=== PATIENT | female | born 1970 | race Caucasian/White ===

== ENCOUNTER 2016-11-18 15:37 | Observation (INO) | payer OTHER ==
[2016-11-18] MEDS ORDERED: SODIUM CHLORIDE 1,000 ML IV STA (16:43)
[2016-11-18] MEDS ORDERED: ACETAMINOPHEN 1000 MG/100 ML VIAL (NON FORMULARY) IVPB ONE (16:43)
--- NOTE | 2016-11-18 16:50 | PDOC ---
History of Present Illness - General History Source: Patient Exam Limitations: No Limitations - History of Present Illness Initial Comments: 11/18/16 17:10 The patient is a 46 year old female with a significant past medical history of diverticulitis, sent by PCP to the Emergency Department with lower abdominal pain, constipation, and vomiting. The patient describes the pain as at her lower abdomen, worse at the right side. She admits to three episodes of vomiting in the past two days. Her last bowel movement was days ago. She also admits to dysuria. She states that her PCP sent her here for colon inflammation , which she has had once previously. The patient denies fever, cough, and chills. Patient denies chest pain, palpitations, and diaphoresis. Patient denies neck pain, or back pain. Patient denies hematuria, or urinary frequency. Allergies: Morphine, Percocet PCP: Dr. Madelyn Frost <Emilee Wing - Last Filed: 11/18/16 18:06> - General History Source: Patient Exam Limitations: No Limitations <Salbador Denton - Last Filed: 11/26/16 09:22> - General Chief Complaint: Pain, Acute Stated Complaint: ABD PAIN (PCP SENT) Time Seen by Provider: 11/18/16 16:25 Past History <Emilee Wing - Last Filed: 11/18/16 18:06> - Past Medical History Anemia: No Asthma: No Cancer: No Cardiac Disorders: No CVA: No COPD: No CHF: No Dementia: No Diabetes: No GI Disorders: Yes (POLYPS) Disorders: No HTN: No Hypercholesterolemia: No Liver Disease: No Seizures: No Thyroid Disease: No - Surgical History Abdominal Surgery: No Appendectomy: Yes Cardiac Surgery: No Cholecystectomy: No Lung Surgery: No Neurologic Surgery: No Orthopedic Surgery: No - Psycho/Social/Smoking Cessation Hx Suicidal Ideation: No Smoking History: Never smoked Have you smoked in the past 12 months: No Hx Alcohol Use: No Drug/Substance Use Hx: No Substance Use Type: None Hx Substance Use Treatment: No <Salbador Denton - Last Filed: 11/26/16 09:22> - Past Medical History Allergies/Adverse Reactions: Allergies Allergy/AdvReac Type Severity Reaction Status Date / Time oxycodone HCl [From Percocet] Allergy Severe Verified 11/18/16 15:48 morphine Allergy Unknown DIZZINESS, Verified 01/17/13 08:05 VOMITING Home Medications: Ambulatory Orders Miscellaneous Medical Supply [Outpatient Order] 1 each ASDIR #1 misc Polyethylene Glycol 3350 [Miralax 119 gm Btl -] 17 gm PO DAILY #0 bottle Sennosides/Docusate Sodium [Pericolace -] 1 tablet PO BID #60 tablet 11/21/16 Review of Systems - Review of Systems Able to Perform ROS?: Yes Comments:: 11/18/16 17:11 CONSTITUTIONAL: No reported: Fever, Chills, Diaphoresis, Generalized Weakness, Malaise, Loss of Appetite HEENT: No reported: Rhinorrhea, Nasal Congestion, Throat Pain, Throat Swelling, Difficulty Swallowing, Mouth Swelling, Ear Pain, Eye Pain, Visual Changes CARDIOVASCULAR: No reported: Chest Pain, Syncope, Palpitations, Irregular Heart Rate, Lightheadedness, Peripheral Edema RESPIRATORY: No reported: Cough, Shortness of Breath, SOB with Exertion, Orthopnea, Wheezing , Stridor, Hemoptysis GASTROINTESTINAL: Reported: + lower abdominal pain, + nausea, + vomiting, + constipation No reported: Abdominal Distension, Diarrhea, Melena, Hematochezia GENITOURINARY: Reported: + dysuria No reported: Frequency, Urgency, Hesitancy, Flank Pain, Genital Pain MUSCULOSKELETAL: No reported: Myalgia, Arthralgia, Joint Swelling, Back pain, Neck Pain SKIN: No reported: Rash, Itching, Pallor HEMATOLOGIC/IMMUNOLOGIC: No reported: Easy Bleeding, Easy Bruising, Lymphadenopathy, Frequent infections ENDOCRINE: No reported: Unexplained Weight Gain, Unexplained Weight Loss, Heat Intolerance , Cold Intolerance NEUROLOGIC: No reported: Headache, Focal Weakness, Paresthesias, Vertigo, Lightheadedness, Unsteady Gait, Seizure, Mental Status Changes, Incontinence PSYCHIATRIC: No reported: Anxiety, Depression <Emilee Wing - Last Filed: 11/18/16 18:06> *Physical Exam - Vital Signs Last Vital Signs Temp Pulse Resp BP Pulse Ox 98.1 F 72 20 110/59 98 11/18/16 15:49 11/18/16 15:49 11/18/16 15:49 11/18/16 15:49 11/18/16 15:49 - Physical Exam Comments: 11/18/16 18:06 GENERAL: The patient is awake, alert, and fully oriented, Nontoxic - in no acute distress. HEAD: Normocephalic, atraumatic. EYES: extraocular movements intact, sclera anicteric, conjunctiva clear. ENT: Normal voice, Moist mucous membranes. NECK: Normal range of motion, No JVD LUNGS: Breath sounds equal, clear to auscultation bilaterally. No wheezes, no rhonchi, no rales. HEART: Regular rate and rhythm, normal S1 and S2 without murmur, rub or gallop. ABDOMEN: Suprapubic tenderness, and LLQ tenderness to palpation. Soft, normoactive bowel sounds. No guarding, no rebound. No masses. No CVA tenderness EXTREMITIES: Normal range of motion, no edema. No clubbing or cyanosis. No cords , erythema, or tenderness. NEUROLOGICAL: No facial asymmetry, Normal speech, normal gait. PSYCH: Normal mood, normal affect. SKIN: Warm, Dry, normal turgor. <Emilee Wing - Last Filed: 11/18/16 18:06> - Vital Signs Last Vital Signs Temp Pulse Resp BP Pulse Ox 98.1 F 72 20 110/59 98 11/18/16 15:49 11/18/16 15:49 11/18/16 15:49 11/18/16 15:49 11/18/16 15:49 <Salbador Denton - Last Filed: 11/26/16 09:22> ED Treatment Course - LABORATORY CBC & Chemistry Diagram: 11/18/16 16:43 11/18/16 16:43 - Medications Given in the ED: ED Medications Discontinued Medications Generic Name Dose Route Start Last Admin Trade Name Lucy PRN Reason Stop Dose Admin Acetaminophen 1,000 mg 11/18/16 16:43 11/18/16 16:53 Ofirmev Injection - IVPB 11/18/16 16:44 1,000 mg ONCE ONE Administration <Emilee Wing - Last Filed: 11/18/16 18:06> - LABORATORY CBC & Chemistry Diagram: 11/21/16 06:00 11/21/16 06:00 - RADIOLOGY Radiology Studies Ordered: Category Date Time Status ABDOMEN & PELVIS CT WITH CONTR [CT] Stat CT Scan 11/18/16 16:43 Ordered <Salbador Denton - Last Filed: 11/26/16 09:22> Medical Decision Making - Medical Decision Making 11/18/16 16:49 A portion of this note was documented by scribe services under my direction. I have reviewed the details of the note, within reason, and agree with the documentation with the following case summary and management plan written by me. Patient treated in the ED. Nursing notes are reviewed and incorporated into the medical decision-making. Vital signs reviewed. Peripheral IV access obtained by the nurse, laboratory studies are drawn and sent, reviewed and interpreted by myself. Vital Signs Temp Pulse Resp BP Pulse Ox 98.1 F 72 20 110/59 98 11/18/16 15:49 11/18/16 15:49 11/18/16 15:49 11/18/16 15:49 11/18/16 15:49 46-year-old with past medical history of prior colitis, not currently on medications, presents with abdominal pain. The patient has started developing in the last several days and started developing some nausea and vomiting and lower abdominal pain prior to her similar colitis episode. Patient does not room her last colonoscopy but had visited her doctor today who was concerned for colitis and sent the patient ED. Patient was complaining about some mild dysuria. Differential includes cystitis versus colitis. We'll obtain labs, urinalysis CT scan. We'll reassess and follow-up 11/18/16 18:55 CBC, BMP 11/18/16 16:43 11/18/16 16:43 CMP Sodium 140 mmol/L (136-145) 11/18/16 16:43 Potassium 4.1 mmol/L (3.5-5.1) 11/18/16 16:43 Chloride 103 mmol/L (98-107) 11/18/16 16:43 Carbon Dioxide 29 mmol/L (21-32) D 11/18/16 16:43 Anion Gap 8 (8-16) 11/18/16 16:43 BUN 14 mg/dL (7-18) D 11/18/16 16:43 Creatinine 0.7 mg/dL (0.55-1.02) D 11/18/16 16:43 Creat Clearance w eGFR > 60 (>60) 11/18/16 16:43 Random Glucose 91 mg/dL (74-106) D 11/18/16 16:43 Calcium 9.6 mg/dL (8.5-10.1) 11/18/16 16:43 Total Bilirubin 0.3 mg/dL (0.2-1.0) 11/18/16 16:43 AST 17 U/L (15-37) D 11/18/16 16:43 ALT 20 U/L (12-78) D 11/18/16 16:43 Alkaline Phosphatase 95 U/L (45-117) D 11/18/16 16:43 Total Protein 7.0 g/dl (6.4-8.2) 11/18/16 16:43 Albumin 3.9 g/dl (3.4-5.0) 11/18/16 16:43 Lipase 102 U/L (73-393) 11/18/16 16:43 Urine Test Results Urine Color Straw 11/18/16 16:47 Urine Appearance Clear 11/18/16 16:47 Urine pH 6.0 (5.0-8.0) 11/18/16 16:47 Urine Protein Negative (NEGATIVE) 11/18/16 16:47 Urine Glucose (UA) Negative (NEGATIVE) 11/18/16 16:47 Urine Ketones Negative (NEGATIVE) 11/18/16 16:47 Urine Blood 1+ (NEGATIVE) H 11/18/16 16:47 Urine Nitrite Negative (NEGATIVE) 11/18/16 16:47 Urine Bilirubin Negative (NEGATIVE) 11/18/16 16:47 Ur Leukocyte Esterase Negative (NEGATIVE) 11/18/16 16:47 Urine RBC 1 /hpf (0-3) 11/18/16 16:47 Urine WBC 1 /hpf (3-5) 11/18/16 16:47 Ur Epithelial Cells Rare /hpf (FEW) 11/18/16 16:47 Urine Mucus Rare 11/18/16 16:[address] scan of abdomen and pelvis pending. [facility] Cyr for further management and disposition. <Salbador Denton - Last Filed: 11/26/16 09:22> *DC/Admit/Observation/Transfer - Attestations Scribe Attestion: 11/18/16 17:11 Documentation prepared by Emilee Wing, acting as medical director/head team physician for Salbador Denton MD. <Emilee Wing - Last Filed: 11/18/16 18:06> <Park,Salbador - Last Filed: 11/26/16 09:22> Diagnosis at time of Disposition: Diverticulitis, Intractable abdominal pain - Discharge Dispostion Disposition: HOME Condition at time of disposition: Improved - Prescriptions - Referrals
[2016-11-18] MEDS ORDERED: ACETAMINOPHEN INJECTION 100 ML IVPB ONE (16:57)
[2016-11-18 17:02] LABS: BASOPHIL 0.3 % (0-2.0); EOSINOPHIL 3.3 % (0-4.5); MCH 31.3 pg (25.7-33.7); MCHC 33.4 g/dl (32.0-36.0); MEAN CELL VOLUME 93.8 fl (80-96); NEUTROPHILS 66.6 % (42.8-82.8); PLATELET COUNT 267 K/MM3 (134-434); RDW 13.5 % (11.6-15.6); WHITE BLOOD COUNT 9.5 K/mm3 (4.0-10.0)
[2016-11-18 17:28] LABS: ALBUMIN 3.9 g/dl (3.4-5.0); ALK PHOS 95 U/L (45-117); ANION GAP 8 (8-16); BILIRUBIN,TOTAL 0.3 mg/dL (0.2-1.0); CALCIUM 9.6 mg/dL (8.5-10.1); CO2 29 mmol/L (21-32); COCKROFT - GAULT 110.1515; CREATININE 0.7 mg/dL (0.55-1.02); GLUCOSE,RANDOM 91 mg/dL (74-106); SGOT/AST 17 U/L (15-37); SGPT/ALT 20 U/L (12-78)
[2016-11-18 17:46] LABS: URINE APPEARANCE CLEAR; URINE BILIRUBIN NEGATIVE (NEGATIVE); URINE COLOR STRAW; URINE GLUCOSE (UA) NEGATIVE (NEGATIVE); URINE KETONE NEGATIVE (NEGATIVE); URINE LEUK ESTERASE NEGATIVE (NEGATIVE); URINE NITRITE NEGATIVE (NEGATIVE); URINE PROTEIN NEGATIVE (NEGATIVE); URINE UROBILINOGEN NEGATIVE E.U./dl (0.2-1.0)
[2016-11-18 17:52] LABS: URINE BLOOD 1+ (NEGATIVE)
[2016-11-18 18:26] LABS: URINE MUCUS RARE; URINE RBC 1 /hpf (0-3); URINE WBC 1 /hpf (3-5)
[2016-11-18] MEDS ORDERED: METRONIDAZOLE 500 MG PREMIXED 100 ML IVPB ONE ×2 (20:18→20:34)
[2016-11-18] MEDS ORDERED: LEVOFLOXACIN 500 MG IVPB 100 ML IVPB ONE ×2 (20:18→21:52)
[2016-11-18] MEDS ORDERED: KETOROLAC TROMETHAMINE 30 MG/1 ML VIAL IVPUSH ONE (20:20)
[2016-11-18] MEDS ORDERED: KETOROLAC TROMETHAMINE 30 MG/1 ML VIAL ONE (20:34)
[2016-11-18] MEDS ORDERED: ACETAMINOPHEN WITH CODEINE 300MG/30MG TABLET PO ONE (23:17)
[2016-11-18] MEDS ORDERED: ACETAMINOPHEN WITH CODEINE 300MG/30MG TABLET ONE (23:33)
--- NOTE | 2016-11-19 01:13 | PDOC ---
*Physical Exam - Vital Signs Last Vital Signs Temp Pulse Resp BP Pulse Ox 98.3 F 59 L 17 109/59 97 11/18/16 21:01 11/18/16 21:01 11/18/16 21:01 11/18/16 21:01 11/18/16 21:01 ED Treatment Course - LABORATORY CBC & Chemistry Diagram: 11/18/16 16:43 11/18/16 16:43 - ADDITIONAL ORDERS Additional order review: Laboratory Results 11/18/16 11/18/16 11/18/16 16:47 16:47 16:43 Sodium 140 Potassium 4.1 Chloride 103 Carbon Dioxide 29 D Anion Gap 8 BUN 14 D Creatinine 0.7 D Creat Clearance w eGFR > 60 Random Glucose 91 D Calcium 9.6 Total Bilirubin 0.3 AST 17 D ALT 20 D Alkaline Phosphatase 95 D Total Protein 7.0 Albumin 3.9 Lipase 102 Urine Color Straw Urine Appearance Clear Urine pH 6.0 Ur Specific [place] 1.010 Urine Protein Negative Urine Glucose (UA) Negative Urine Ketones Negative Urine Blood 1+ H Urine Nitrite Negative Urine Bilirubin Negative Urine Urobilinogen Negative Ur Leukocyte Esterase Negative Urine RBC 1 Urine WBC 1 Ur Epithelial Cells Rare Urine Mucus Rare Urine HCG, Qual Negative 11/18/16 16:43 RBC 3.86 MCV 93.8 MCHC 33.4 RDW 13.5 MPV 10.0 Neutrophils % 66.6 Lymphocytes % 23.0 Monocytes % 6.8 Eosinophils % 3.3 Basophils % 0.3 - Medications Given in the ED: ED Medications Discontinued Medications Generic Name Dose Route Start Last Admin Trade Name Lucy PRN Reason Stop Dose Admin Acetaminophen 1,000 mg 11/18/16 16:43 11/18/16 16:53 Ofirmev Injection - IVPB 11/18/16 16:44 1,000 mg ONCE ONE Administration Acetaminophen/Codeine Phosphate 1 tab 11/18/16 23:17 11/18/16 23:35 Tylenol # 3 - PO 11/18/16 23:18 1 tab ONCE ONE Administration Sodium Chloride 1,000 mls @ 1,000 mls/hr 11/18/16 16:43 11/18/16 16:53 Normal Saline - IV 11/18/16 17:42 1,000 mls/hr ASDIR STA Administration Metronidazole 100 mls @ 100 mls/hr 11/18/16 20:18 11/18/16 20:47 Flagyl 500mg Premixed Ivpb - IVPB 11/18/16 21:17 100 mls/hr ONCE ONE Administration Levofloxacin 100 mls @ 100 mls/hr 11/18/16 20:18 11/18/16 21:30 Levaquin 500 Mg Premixed Ivpb - IVPB 11/18/16 21:17 100 mls/hr ONCE ONE Administration Ketorolac Tromethamine 30 mg 11/18/16 20:20 11/18/16 20:47 Toradol Injection - IVPUSH 11/18/16 20:21 30 mg ONCE ONE Administration *DC/Admit/Observation/Transfer Diagnosis at time of Disposition: Intractable abdominal pain Diverticulitis of intestine Qualifiers: Diverticulitis site: large intestine Diverticulitis bleeding: without bleeding Diverticulitis complication: unspecified complication status Qualified Code(s): K57.32 - Diverticulitis of large intestine without perforation or abscess without bleeding - Discharge Dispostion Condition at time of disposition: Stable Admit: Yes - Referrals Referrals: Madelyn Frost NP [Primary Care Provider] - - Patient Instructions - Post Discharge Activity
[2016-11-19] MEDS ORDERED: HYDROmorphone HCL CARPU-JECT 1 MG/1 ML DISP.SYRIN IVPUSH ONE (01:14)
[2016-11-19] MEDS ORDERED: DEXTROSE 5%-0.45% SALINE 1,000 ML IV SCH (01:15)
[2016-11-19] MEDS ORDERED: HYDROmorphone HCL CARPU-JECT 1 MG/1 ML DISP.SYRIN ONE (01:41)
[2016-11-19] MEDS ORDERED: ONDANSETRON 4 MG/2 ML VIAL ONE (01:42)
[2016-11-19] MEDS ORDERED: ONDANSETRON 4 MG/2 ML VIAL IVPB PRN (03:14)
[2016-11-19] MEDS ORDERED: KETOROLAC TROMETHAMINE 15 MG/ML VIAL IVPUSH PRN (03:14)
--- NOTE | 2016-11-19 03:30 | HP ---
CHIEF COMPLAINT: " my stomach hurts" PCP: Dr Frost Gi: Dr Duncan HISTORY OF PRESENT ILLNESS: This is a 46 yo F with PMH of diverticulosis, who presents to ED at urging of PCP due to 2 days of severe abd pain, vomiting and constipation. Her pain is new , in Ruq, RLQ and pelvic, sharp, constant and minimally relieved by toradol given in ER. It started suddenly 2 days ago and is associated with nausea (not nauseus anymore) and 3 episodes of NBNB voomiting, last one yesterday. She has been able to tolerate PO. Her last BM was yesterday but very small. Last large BM was on tuesday. She denies melena or hematochezia. She last saw Dr Duncan 2 yrs ago at which time she was diagnosed with diverticulosis on colonoscopy. She had a CT and in 2013 on which sigmoid diverticulosis and mild wall thickening ( not officially read as such) was present. She denies diarrhea, pain during defecation, mucus in stool, f/c, family hx if ibd, chest pain, sob, h/a, loc, palpitations. She reports assiciated R lank pain but denies dysuria. ER course was notable for: (1)labs (2)cxr, ct abd/pelvis with contrast (3)ivf, dilaudid, toradol, levaquin, flagyn, tylenol Recent Travel: denies PAST MEDICAL HISTORY: as above PAST SURGICAL HISTORY: appendectomy, cholecystectomy. Social History: lives at home Smoking:denies Alcohol:denies Drugs: denies Family History: Allergies oxycodone HCl [From Percocet] Allergy (Severe, Verified 11/18/16 15:48) DIZZY VOMITING morphine Allergy (Unknown, Verified 01/17/13 08:05) DIZZINESS, VOMITING HOME MEDICATIONS: Home Medications Medication Instructions Recorded NK [No Known Home Medication] 11/18/16 REVIEW OF SYSTEMS CONSTITUTIONAL: Absent: fever, chills, loss of appetite, weight change HEENT: Absent: rhinorrhea, nasal congestion, throat pain CARDIOVASCULAR: Absent: chest pain, syncope, palpitations, irregular heart rate, lightheadedness , peripheral edema RESPIRATORY: Absent: cough, shortness of breath, dyspnea with exertion, orthopnea GASTROINTESTINAL: Absent: abdominal distension, diarrhea, melena, hematochezia GENITOURINARY: Absent: dysuria, frequency, urgency, hematuria MUSCULOSKELETAL: Absent: myalgia, arthralgia SKIN: Absent: rash, itching, pallor HEMATOLOGIC/IMMUNOLOGIC: Absent: frequent infections ENDOCRINE: Absent: unexplained weight gain, unexplained weight loss, heat intolerance, cold intolerance NEUROLOGIC: Absent: headache, focal weakness or paresthesias PSYCHIATRIC: Absent: anxiety PHYSICAL EXAMINATION GENERAL: Awake, alert, and fully oriented, in mild distress. HEAD: Normal with no signs of trauma. EYES: Pupils equal, round and reactive to light, extraocular movements intact, sclera anicteric, conjunctiva clear. No lid lag. EARS, NOSE, THROAT: Moist mucous membranes. NECK: supple without JVD LUNGS: Breath sounds equal, clear to auscultation bilaterally HEART: Regular rate and rhythm, normal S1 and S2 ABDOMEN: Soft, tender RUQ, RLQ and pelvic region, not distended, normoactive bowel sounds, no guarding, no rebound, no masses. No hepatomegaly or splenomegaly. RECTAL EXAM: adequate rectal sphincter tone, no lesions, hard light brown stool in vault, not painful MUSCULOSKELETAL: +R CVA tenderness. UPPER EXTREMITIES: 2+ pulses, warm, well-perfused. No cyanosis. No clubbing. No peripheral edema. LOWER EXTREMITIES: 2+ pulses, warm, well-perfused. No calf tenderness. No peripheral edema. NEUROLOGICAL: Cranial nerves II-XII grossly intact. Normal speech. PSYCHIATRIC: Cooperative. Good eye contact. Appropriate mood and affect. SKIN: Warm, dry ASSESSMENT/PLAN: This is a 46 yo F with PMH of diverticulosis, who presents to ED at urging of PCP due to 2 days of severe abd pain, vomiting and constipation. Acute uncomplicated diverticulitis vs colitis -Ct abd/pelvis w contrast: sigmoid diverticulitis, distal 3rd sigmoid wall thickening with mild edema. impacted with stool -diverticulosis on colonoscopy 2 yrs ago -no leukocytosis or fever; +severe intractable abd pain -levaquin, flagyl given in ed; cover with IV abx cipro 400 bid and flagyl 500 q8h; may be switched to a 7-10 d course of PO abx shortly -tylenol; toradol worked best for pain control; continue -zofran PRN nausea -NS@100 -full liquids diet -colace for constipation, may need disimpaction -Dr Duncan consult FEN NS@100 lytes stable full liquid diet SCDs, early ambulation, PPI Dispo: obs med tracy Problem List - Problem (1) Diverticulitis Code(s): K57.92 - DVTRCLI OF INTEST, PART UNSP, W/O PERF OR ABSCESS W/O BLEED Qualifiers: Diverticulitis site: large intestine Diverticulitis bleeding: without bleeding Diverticulitis complication: unspecified complication status Qualified Code(s): K57.32 - Diverticulitis of large intestine without perforation or abscess without bleeding (2) Intractable abdominal pain Code(s): R10.9 - UNSPECIFIED ABDOMINAL PAIN Visit type - Emergency Visit Emergency Visit: Yes ED Registration Date: 11/19/16 Care time: The patient presented to the Emergency Department on the above date and was hospitalized for further evaluation of their emergent condition. - New Patient This patient is new to me today: Yes Date on this admission: 11/19/16 - Critical Care Critical Care patient: No
[2016-11-19] MEDS ORDERED: ACETAMINOPHEN 325 MG TABLET (FP) PO PRN (03:32)
--- NOTE | 2016-11-19 03:41 | PN ---
<Amelia Barrera - Last Filed: 11/19/16 03:41> Teaching Attending Note Name of Resident: Jessa Amor <Rosie Branch - Last Filed: 11/19/16 03:52> Teaching Attending Note ATTENDING PHYSICIAN STATEMENT I saw and evaluated the patient. I reviewed the resident's note and discussed the case with the resident. I agree with the resident's findings and plan as documented. SUBJECTIVE: 46 yo F presents to ED after referral from PMD with complaint of lower quadrant abdominal pain for 1 week. On evaluation in ED, patient found to have diverticulosis with signs of colon wall thickening and labs within normal limits , however, intractable pain for which admission was requested. Past medical Hx significant for diverticulosis, appendectomy and cholecystectomy. OBJECTIVE: Last Vital Signs Temp Pulse Resp BP Pulse Ox 98.3 F 59 L 17 109/59 97 11/18/16 21:01 11/18/16 21:01 11/18/16 21:01 11/18/16 21:01 11/18/16 21:01 GENERAL: Age incongruent with appearance. Awake, alert, and fully oriented, in no acute distress HEENT: Atraumatic. PERRLA, EOMI. Moist mucosa. No JVD LUNGS: No distress, speaks full sentences, clear to auscultation bilaterally HEART: Regular rate and rhythm, normal S1 and S2, no murmurs, rubs or gallops, peripheral pulses normal and equal bilaterally. ABDOMEN: Soft, tender in LLQ more than RLQ, normoactive bowel sounds. No guarding, no rebound. No masses. Rectal: Rectal exam positive for feces in rectal vault EXTREMITIES: Normal inspection, Normal range of motion, no edema. No clubbing or Cyanosis. NEUROLOGICAL: Cranial nerves II through XII grossly intact. Normal speech, gait not assessed, no focal sensorimotor deficits SKIN: Warm, Dry, normal turgor, no rashes or lesions noted. CBCD WBC 9.5 K/mm3 (4.0-10.0) 11/18/16 16:43 RBC 3.86 M/mm3 (3.60-5.2) 11/18/16 16:43 Hgb 12.1 GM/dL (10.7-15.3) 11/18/16 16:43 Hct 36.2 % (32.4-45.2) 11/18/16 16:43 MCV 93.8 fl (80-96) 11/18/16 16:43 MCHC 33.4 g/dl (32.0-36.0) 11/18/16 16:43 RDW 13.5 % (11.6-15.6) 11/18/16 16:43 Plt Count 267 K/MM3 (134-434) 11/18/16 16:43 MPV 10.0 fl (7.5-11.1) 11/18/16 16:43 CMP Sodium 140 mmol/L (136-145) 11/18/16 16:43 Potassium 4.1 mmol/L (3.5-5.1) 11/18/16 16:43 Chloride 103 mmol/L (98-107) 11/18/16 16:43 Carbon Dioxide 29 mmol/L (21-32) D 11/18/16 16:43 Anion Gap 8 (8-16) 11/18/16 16:43 BUN 14 mg/dL (7-18) D 11/18/16 16:43 Creatinine 0.7 mg/dL (0.55-1.02) D 11/18/16 16:43 Creat Clearance w eGFR > 60 (>60) 11/18/16 16:43 Calcium 9.6 mg/dL (8.5-10.1) 11/18/16 16:43 Total Bilirubin 0.3 mg/dL (0.2-1.0) 11/18/16 16:43 AST 17 U/L (15-37) D 11/18/16 16:43 ALT 20 U/L (12-78) D 11/18/16 16:43 Alkaline Phosphatase 95 U/L (45-117) D 11/18/16 16:43 Total Protein 7.0 g/dl (6.4-8.2) 11/18/16 16:43 Albumin 3.9 g/dl (3.4-5.0) 11/18/16 16:43 ASSESSMENT AND PLAN: 1.) Intractable abdominal pain secondary to diverticulitis vs colitis -Full liquid diet -IVF overnight -Protonix -Levo and flagyl -Toradol PRN for pain -Zofran PRN for nausea -GI consult Dr. Duncan Case discussed with resident and plans as documented in HPI. Documentation is prepared by Rosie Branch acting as medical program specialist for Amelia Barrera M.D.
[2016-11-19 04:00] VITALS: BMI 27.5
[2016-11-19] MEDS: SODIUM CHLORIDE 1,000 ML IV SCH ×2 (04:19→22:29)
[2016-11-19] MEDS: METRONIDAZOLE 500 MG PREMIXED 100 ML IVPB SCH ×3 (04:19→17:04)
[2016-11-19] MEDS: DOCUSATE SODIUM 100 MG CAPSULE (FP) PO SCH ×3 (06:01→22:29)
[2016-11-19 07:41] LABS: BASOPHIL 0.1 % (0-2.0); EOSINOPHIL 0.6 % (0-4.5); MCH 31.9 pg (25.7-33.7); MCHC 33.8 g/dl (32.0-36.0); MEAN CELL VOLUME 94.2 fl (80-96); MEAN PLT VOLUME 9.8 fl (7.5-11.1); NEUTROPHILS 79.7 % (42.8-82.8); PLATELET COUNT 213 K/MM3 (134-434); WHITE BLOOD COUNT 7.7 K/mm3 (4.0-10.0)
[2016-11-19 08:03] LABS: CALCIUM 8.4 mg/dL (8.5-10.1); COCKROFT - GAULT 141.78; CREATININE 0.6 mg/dL (0.55-1.02)
--- NOTE | 2016-11-19 09:41 | EKG ---
Test Reason : Blood Pressure : / mmHG Vent. Rate : 056 BPM Atrial Rate : 056 BPM P-R Int : 162 ms QRS Dur : 078 ms QT Int : 466 ms P-R-T Axes : 047 078 076 degrees QTc Int : 449 ms SINUS BRADYCARDIA OTHERWISE NORMAL ECG WHEN COMPARED WITH ECG OF 23-MAR-2011 07:40, NO SIGNIFICANT CHANGE WAS FOUND Confirmed by JG FREGOSO MD ([id number]) on 11/19/2016 9:41:13 AM Referred By: Confirmed By:JG FREGOSO MD
[2016-11-19] MEDS ORDERED: LEVOFLOXACIN 500 MG IVPB 100 ML IVPB SCH (10:00)
[2016-11-19] MEDS: PANTOPRAZOLE 40 MG TABLET (FP) PO SCH (10:00)
[2016-11-19] MEDS ORDERED: CIPROFLOXACIN 400 MG/D5W 200 ML IVPB SCH (10:00)
[2016-11-19] MEDS ORDERED: SENNOSIDES/DOCUSATE COMBO (SENNA PLUS) TABLET (UD) PO SCH (11:30)
[2016-11-19] MEDS ORDERED: BISACODYL 10 MG SUPP.RECT RC ONE ×3 (11:30→20:00)
--- NOTE | 2016-11-19 12:25 | PN ---
Teaching Attending Note Name of Resident: Ken Boo ATTENDING PHYSICIAN STATEMENT I saw and evaluated the patient. I reviewed the resident's note and discussed the case with the resident. I agree with the resident's findings and plan as documented. SUBJECTIVE: no fever or chills, has still abd pain in RLQ , and RUQ . and suprapubic area, she denies dysuria or frequency. had n/V last night , now with nausea only with no vomiting. OBJECTIVE: NAD , AAOX3 MMM. CV: RRR, no mRG Lunsg: CTAB ext: no edema Abd : soft, TTP in RLQ, RUQ and suprapubic area. rebound tenderness , no guarding . nl BS . no distention ASSESSMENT AND PLAN: 46 y/o lady with h/o CCY, diverticulosis , and chronic constipation who presented with abs pain , was found to have fecal impaction . 1- Abd pain: probably due to the fecal impaction and sigmoiditis ( infectious vs ischemic ). although her tenderness and pain is in RLQ , CT with contrast did not show indirect signs of appendicitis ( appendix was not completely visualized though) . acute appendicitis is less likely at this point as there is no fever or leukocytosis . and pain might be from all the stool impaction and with stool in R colon too. adhesions might be causing her pain too. No evidence of UTI, or ileus on CT scan - cont levaquin and flagyl. - rectal exam was done and disimpaction was attempted , but was unsuccessful. - will try Dulcolox supp , amiralax TID, lactulose twice today, senna+colace. - Avoid enemas due to risk of perforation especially with wall edema on CT scan - monitor for fever, or leukocytosis. - check lactic acid - check post void bladder scan. due to the bladder distention on CT scan - no evidence of biliary source , no CBD dialtion , nl LFTS and h/o CCY - GI consult pending - DV NGT ordered last night - IVF DVTS px
--- NOTE | 2016-11-19 13:32 | MSN ---
Progress Note (short form) - Note Progress Note: Subjective: Patient seen and examined at bed side this morning. Patient complains of RLQ abdominal pain, right CVA tenderness rated as a 4/10 (an improvement from the night before), and suprapubic pain. Patient denies dysuria , or additional vomiting since last night. Patient is still nausea. Objective: Vital Signs Period Temp Pulse Resp BP Sys/Alas Pulse Ox Last 24 Hr 97.5 F-98.3 F 58-77 17-20 93-110/54-59 97-98 General: Middle aged female, alert and oriented X3. Head: normocephalic, atraumatic Eyes: No scleral icterus or pallor. EOM intact. Neck: Supple. HENT: moist mucus membranes; pharynx without exudates or erythema Abdomen: Soft. Tender to palpation at RLQ and suprapubic region. Normal bowel sounds. No visible lesions or rashes. No masses palpable. Right CVA tenderness. Lungs: CTA b/l Heart: regular rate and rhythm with normal S1 and S2 Extremities: warm with 2+ pulses. No edema. Neuro: normal speech. normal gait. Laboratory Results - last 24 hr 11/18/16 11/18/16 11/18/16 16:43 16:43 16:47 WBC 9.5 RBC 3.86 Hgb 12.1 Hct 36.2 MCV 93.8 MCHC 33.4 RDW 13.5 Plt Count 267 MPV 10.0 Neutrophils % 66.6 Lymphocytes % 23.0 Monocytes % 6.8 Eosinophils % 3.3 Basophils % 0.3 Sodium 140 Potassium 4.1 Chloride 103 Carbon Dioxide 29 D Anion Gap 8 BUN 14 D Creatinine 0.7 D Creat Clearance w eGFR > 60 Random Glucose 91 D Lactic Acid Calcium 9.6 Total Bilirubin 0.3 AST 17 D ALT 20 D Alkaline Phosphatase 95 D Total Protein 7.0 Albumin 3.9 Lipase 102 Urine Color Straw Urine Appearance Clear Urine pH 6.0 Ur Specific Waterflow 1.010 Urine Protein Negative Urine Glucose (UA) Negative Urine Ketones Negative Urine Blood 1+ H Urine Nitrite Negative Urine Bilirubin Negative Urine Urobilinogen Negative Ur Leukocyte Esterase Negative Urine RBC 1 Urine WBC 1 Ur Epithelial Cells Rare Urine Mucus Rare Urine HCG, Qual 11/18/16 11/19/16 11/19/16 16:47 06:05 06:05 WBC 7.7 RBC 3.47 L Hgb 11.1 Hct 32.7 MCV 94.2 MCHC 33.8 RDW 13.0 Plt Count 213 D MPV 9.8 Neutrophils % 79.7 Lymphocytes % 10.6 D Monocytes % 9.0 Eosinophils % 0.6 D Basophils % 0.1 Sodium 139 Potassium 4.3 Chloride 105 Carbon Dioxide 28 Anion Gap 6 L BUN 13 Creatinine 0.6 Creat Clearance w eGFR Random Glucose 100 Lactic Acid Calcium 8.4 L Total Bilirubin AST ALT Alkaline Phosphatase Total Protein Albumin Lipase Urine Color Urine Appearance Urine pH Ur Specific Waterflow Urine Protein Urine Glucose (UA) Urine Ketones Urine Blood Urine Nitrite Urine Bilirubin Urine Urobilinogen Ur Leukocyte Esterase Urine RBC Urine WBC Ur Epithelial Cells Urine Mucus Urine HCG, Qual Negative 11/19/16 10:52 WBC RBC Hgb Hct MCV MCHC RDW Plt Count MPV Neutrophils % Lymphocytes % Monocytes % Eosinophils % Basophils % Sodium Potassium Chloride Carbon Dioxide Anion Gap BUN Creatinine Creat Clearance w eGFR Random Glucose Lactic Acid 0.8 Calcium Total Bilirubin AST ALT Alkaline Phosphatase Total Protein Albumin Lipase Urine Color Urine Appearance Urine pH Ur Specific Waterflow Urine Protein Urine Glucose (UA) Urine Ketones Urine Blood Urine Nitrite Urine Bilirubin Urine Urobilinogen Ur Leukocyte Esterase Urine RBC Urine WBC Ur Epithelial Cells Urine Mucus Urine HCG, Qual Assessment and Plan: 46 yr old female with a hx of diverticulosis and constipation admitted for abdominal pain. 1. Acute abdominal pain-Stool in sigmoid colon visible on CT may be causing pain. Normal LFTs and WBC with no evidence of pyelonephritis/nephrolithisis/ UTI. * Post-void bladder scan * Add miralax TID, doculase suppository, lactulose, senna and colace. * Continue levaquin and flagyl * Stop ketorolac * IVF
--- NOTE | 2016-11-19 15:35 | PN ---
Physical Exam: SUBJECTIVE: Patient seen and examined at bedside. Continues to have right sided abdominal pain but has improved. Also complaining of nausea but not vomiting. Constipated and has not had complete bowel movement in over a week. Denies CP,HEMPHILL , SOB,palpitation. OBJECTIVE: Vital Signs Period Temp Pulse Resp BP Sys/Alas Pulse Ox Last 24 Hr 97.5 F-98.7 F 58-77 20-20 93-108/54-61 97 GENERAL:AAOx3, Mild distress HEAD: NC/AT ENT: Dry mucous membranes. NECK:supple , no jvd LUNGS:CTAB, no wheeze or rales HEART: RRR, no M/G/R ABDOMEN: Soft, moderate right sided tenderness >RLQ,RLQ rebound, nondistended, normoactive bowel sounds, no hepatosplenomegaly, no masses. EXTREMITIES: 2+ pulses, warm, well-perfused, no edema. NEUROLOGICAL: Normal speech, gait not observed. PSYCH: anxious SKIN: Warm, dry, normal turgor, no rashes or lesions noted Laboratory Results - last 24 hr 11/19/16 11/19/16 11/19/16 06:05 06:05 10:52 WBC 7.7 RBC 3.47 L Hgb 11.1 Hct 32.7 MCV 94.2 MCHC 33.8 RDW 13.0 Plt Count 213 D MPV 9.8 Neutrophils % 79.7 Lymphocytes % 10.6 D Monocytes % 9.0 Eosinophils % 0.6 D Basophils % 0.1 Sodium 139 Potassium 4.3 Chloride 105 Carbon Dioxide 28 Anion Gap 6 L BUN 13 Creatinine 0.6 Random Glucose 100 Lactic Acid 0.8 Calcium 8.4 L Active Medications Generic Name Dose Route Start Last Admin Trade Name Freq PRN Reason Stop Dose Admin Acetaminophen 650 mg 11/19/16 03:32 Tylenol - PO Q4H PRN FEVER OR PAIN Docusate Sodium 100 mg 11/19/16 06:00 11/19/16 06:01 Colace - PO 100 mg TID ANUSHKA Administration Metronidazole 100 mls @ 100 mls/hr 11/19/16 04:00 11/19/16 10:00 Flagyl 500mg Premixed Ivpb - IVPB 100 mls/hr Q8H-IV ANUSHKA Administration Sodium Chloride 1,000 mls @ 100 mls/hr 11/19/16 03:45 11/19/16 04:19 Normal Saline - IV 100 mls/hr ASDIR ANUSHKA Administration Levofloxacin 150 mls @ 100 mls/hr 11/19/16 21:00 Levaquin 750 Mg Premixed Ivpb - IVPB DAILY@2100 ANUSHKA Lactulose 20 gm 11/19/16 11:30 Cephulac (Oral Use) PO 11/19/16 22:01 BID ANUSHKA Ondansetron HCl 4 mg 11/19/16 03:14 11/19/16 06:10 Zofran Injection IVPB 4 mg Q4H PRN Administration NAUSEA Pantoprazole Sodium 40 mg 11/19/16 10:00 11/19/16 10:00 Protonix - PO 40 mg DAILY ANUSHKA Administration Polyethylene Glycol 17 gm 11/19/16 11:30 Miralax (For Daily Use) - PO TID ANUSHKA Senna/Docusate Sodium 1 tablet 11/19/16 11:30 Pericolace - PO BID ANUSHKA ASSESSMENT/PLAN: 46 yo F with significant PMHx of diverticulosis admitted for intractable abdominal pain. Problem List - Problems (1) Diverticulitis Assessment/Plan: * CT revealed acute diverticulitis. * Will continue IV Flagyl and Levaquin * IVF with NS * NPO for now. * Consulted her GI Dr. Duncan * Pain control (2) Intractable abdominal pain Assessment/Plan: * CT shows possible colits possibly a result of severe constipation and fecal impaction. * Attempted to manually disimpact today but stool too far up in rectum * Will order Miralax TID, Senna, Lactulose to promote BM Visit type - Emergency Visit Emergency Visit: Yes ED Registration Date: 11/19/16 Care time: The patient presented to the Emergency Department on the above date and was hospitalized for further evaluation of their emergent condition. - New Patient This patient is new to me today: Yes Date on this admission: 11/20/16 - Critical Care Critical Care patient: No
[2016-11-19] MEDS: LACTULOSE 20 GM/30 ML UDC (FOR ORAL USE ONLY) PO SCH ×2 (17:03→22:29)
[2016-11-19] MEDS: POLYETHYLENE GLYCOL 3350 119 GM BTL PO SCH ×3 (17:04→22:31)
[2016-11-19] MEDS ORDERED: DOCUSATE SODIUM 100 MG CAPSULE (FP) PO ONE (17:15)
[2016-11-19] MEDS ORDERED: PT OWN MED DRAWER 7, Y5N ONE (19:56)
--- NOTE | 2016-11-19 20:51 | CON.GI ---
Consult Consult Specialty:: GI Referred by:: Dr Eller Reason for Consultation:: abdominal pain - History of Present Illness Chief Complaint: RLQ pain History of Present Illness: 46 F seen in the past by Dr Duncan, with h/o diverticulosis/diverticulitis last episode 4 years ago now back with RLQ pain for 2 days [employer] with associated vomiting. She is no longer vomiting. A CT was done on admission that revealed L sided diverticulosis with colonic wall thickening and some stranding which could be interpreted as acute [id number] diverticulitis or chronic severe diverticulosis. She is s/p burton. The appendix is not visualized but there are no soft signs of appendicitis. - History Source History Provided By: Patient, Medical Record Limitations to Obtaining History: No Limitations - Past Surgical History Past Surgical History: Yes: Cholecystectomy - Alcohol/Substance Use Hx Alcohol Use: No - Smoking History Smoking history: Never smoked Have you smoked in the past 12 months: No Home Medications - Allergies Allergies/Adverse Reactions: Allergies Allergy/AdvReac Type Severity Reaction Status Date / Time oxycodone HCl [From Percocet] Allergy Severe Verified 11/18/16 15:48 morphine Allergy Unknown DIZZINESS, Verified 01/17/13 08:05 VOMITING - Home Medications Home Medications: Ambulatory Orders NK [No Known Home Medication] 11/18/16 Physical Exam-GI Vital Signs: Vital Signs Temperature 99.2 F 11/19/16 18:00 Pulse Rate 62 11/19/16 18:00 Respiratory Rate 18 11/19/16 18:00 Blood Pressure 101/54 11/19/16 18:00 O2 Sat by Pulse Oximetry (%) 96 11/19/16 10:00 Constitutional: Yes: Well Nourished, Anxious, Mild Distress HENT: Yes: Normocephalic Neck: Yes: Supple Cardiovascular: Yes: Regular Rate and Rhythm Respiratory: Yes: CTA Bilaterally Gastrointestinal Inspection: Yes: WNL ...Auscultate: Yes: Normoactive Bowel Sounds ...Palpate: Yes: Soft, Tenderness (RLQ) Labs: CBC, BMP 11/19/16 06:05 11/19/16 06:05 Imaging - Results Cat Scan: Report Reviewed (as noted) Assessment/Plan Patient with above history admitted with abdominal pain Poss diverticulitis but radiology finding on the left. No leukocytosis AP not visualized Blood in urine suggests poss nephrolithiasis Rec: Surgery consult. Poss appendicitis is a clinical diagnosis. Dedicated renal u/s Continue IV AbRx for poss uncomplicated diverticulitis ?:Mesenteric adenitis-Ab and fluids Constipation: Excessive Retained stool not mentioned on CT. Would d/c all stimulant laxatives at this time and treat with gentle laxatives from above Avoid narcotic pain relievers Relistor 12 mg SQ
[2016-11-19] MEDS ORDERED: LEVOFLOXACIN 750 MG IVPB 150 ML IVPB SCH (21:00)
[2016-11-19] MEDS: Methylnaltrexone Bromide 12 MG/0.6 ML KIT SQ SCH (22:30)
[2016-11-20] MEDS: METRONIDAZOLE 500 MG PREMIXED 100 ML IVPB SCH ×3 (01:37→18:55)
[2016-11-20] MEDS: SODIUM CHLORIDE 1,000 ML IV SCH (04:33)
[2016-11-20] MEDS: POLYETHYLENE GLYCOL 3350 119 GM BTL PO SCH (05:52)
[2016-11-20] MEDS: DOCUSATE SODIUM 100 MG CAPSULE (FP) PO SCH ×2 (05:52→14:23)
[2016-11-20 08:57] LABS: BASOPHIL 0.3 % (0-2.0); EOSINOPHIL 3.7 % (0-4.5); MCHC 33.7 g/dl (32.0-36.0); MEAN CELL VOLUME 94.9 fl (80-96); MEAN PLT VOLUME 9.5 fl (7.5-11.1); NEUTROPHILS 58.6 % (42.8-82.8); PLATELET COUNT 228 K/MM3 (134-434); RDW 13.2 % (11.6-15.6)
[2016-11-20] MEDS: PANTOPRAZOLE 40 MG TABLET (FP) PO SCH (09:07)
[2016-11-20] MEDS: Methylnaltrexone Bromide 12 MG/0.6 ML KIT SQ SCH (09:07)
[2016-11-20 09:23] LABS: ALBUMIN 3.1 g/dl (3.4-5.0); ANION GAP 8 (8-16); CALCIUM 8.5 mg/dL (8.5-10.1); CO2 27 mmol/L (21-32); COCKROFT - GAULT 121.465; CREATININE 0.7 mg/dL (0.55-1.02); GLUCOSE,RANDOM 91 mg/dL (74-106); SGOT/AST 87 U/L (15-37); SGPT/ALT 129 U/L (12-78)
[2016-11-20 09:25] LABS: ALK PHOS 118 U/L (45-117); BILIRUBIN,TOTAL 0.3 mg/dL (0.2-1.0); TOT PROT 5.9 g/dl (6.4-8.2)
--- NOTE | 2016-11-20 11:07 | PN ---
Teaching Attending Note Name of Resident: Ken Boo ATTENDING PHYSICIAN STATEMENT I saw and evaluated the patient. I reviewed the resident's note and discussed the case with the resident. I agree with the resident's findings and plan as documented. SUBJECTIVE: no fever or chills, still has abd pain in RLQ and suprapbubic area. OBJECTIVE: NAD , AAOX3 MMM. CV: RRR, no mRG Lungs: CTAB ext: no edema Abd : soft, TTP in RLQ, suprapubic area. rebound tenderness , no guarding . nl BS . no distention ASSESSMENT AND PLAN: 46 y/o lady with h/o CCY, diverticulosis , and chronic constipation who presented with abs pain , was found to have fecal impaction . 1- Abd pain: fecal impaction and colitis is contributing. the patient had appendectomy at age 19. today LFTS are suddenly elevated. She is s/p CCY few years ago. this LFTS elevation can be due to ABx use or due to CBD obstruction with sludge or stone She had h/o nephrolithiasis in past, and now blood in urine. Agree with possibility of renal stones. Ct report did not comment on kidneys and on my review, there is a question of R hydroureter. - check renal US - check RUQ US due to LFTS elevation - stop miralax and cont Methylnaltrexon , if it does not work after three doses , will try something elese - post void bladder scan - cont levaquin and flagyl, for colitis /diverticulitis - monitor labs and vital signs
--- NOTE | 2016-11-20 11:08 | PN ---
Physical Exam: SUBJECTIVE: Patient seen and examined at bedside. Continues to have right sided abdominal pain but has improved. No BM overnight. Denies CP,HEMPHILL, SOB, palpitation. OBJECTIVE: Vital Signs Period Temp Pulse Resp BP Sys/Alas Pulse Ox Last 24 Hr 98.3 F-99.2 F 58-64 18-20 101-114/50-71 97 GENERAL:AAOx3, Mild distress HEAD: NC/AT ENT: Dry mucous membranes. NECK:supple , no jvd LUNGS:CTAB, no wheeze or rales HEART: RRR, no M/G/R ABDOMEN: Soft, moderate right sided tenderness >RLQ, nondistended, normoactive bowel sounds, no hepatosplenomegaly, no masses. EXTREMITIES: 2+ pulses, warm, well-perfused, no edema. NEUROLOGICAL: Normal speech, gait not observed. PSYCH: anxious SKIN: Warm, dry, normal turgor, no rashes or lesions noted Laboratory Results - last 24 hr 11/19/16 11/20/16 11/20/16 10:52 08:20 08:20 WBC 5.0 D RBC 3.49 L Hgb 11.2 Hct 33.1 MCV 94.9 MCHC 33.7 RDW 13.2 Plt Count 228 MPV 9.5 Neutrophils % 58.6 D Lymphocytes % 29.9 D Monocytes % 7.5 Eosinophils % 3.7 D Basophils % 0.3 Sodium 143 Potassium 3.9 Chloride 108 H Carbon Dioxide 27 Anion Gap 8 BUN 7 D Creatinine 0.7 Creat Clearance w eGFR > 60 Random Glucose 91 Lactic Acid 0.8 Calcium 8.5 Total Bilirubin 0.3 AST 87 H D ALT 129 H D Alkaline Phosphatase 118 H D Total Protein 5.9 L Albumin 3.1 L D Active Medications Generic Name Dose Route Start Last Admin Trade Name Freq PRN Reason Stop Dose Admin Acetaminophen 650 mg 11/19/16 03:32 11/20/16 04:34 Tylenol - PO 650 mg Q4H PRN Administration FEVER OR PAIN Docusate Sodium 100 mg 11/19/16 06:00 11/20/16 05:52 Colace - PO 100 mg TID ANUSHKA Administration Metronidazole 100 mls @ 100 mls/hr 11/19/16 04:00 11/20/16 09:07 Flagyl 500mg Premixed Ivpb - IVPB 100 mls/hr Q8H-IV ANUSHKA Administration Sodium Chloride 1,000 mls @ 100 mls/hr 11/19/16 03:45 11/20/16 04:33 Normal Saline - IV Not Given ASDIR ANUSHKA Levofloxacin 150 mls @ 100 mls/hr 11/19/16 21:00 11/19/16 20:25 Levaquin 750 Mg Premixed Ivpb - IVPB 100 mls/hr DAILY@2100 ANUSHKA Administration Methylnaltrexone Sandy 12 mg 11/19/16 21:30 11/20/16 09:07 Relistor - SQ 12 mg DAILY ANUSHKA Administration Ondansetron HCl 4 mg 11/19/16 03:14 11/19/16 06:10 Zofran Injection IVPB 4 mg Q4H PRN Administration NAUSEA Pantoprazole Sodium 40 mg 11/19/16 10:00 11/20/16 09:07 Protonix - PO 40 mg DAILY ANUSHKA Administration ASSESSMENT/PLAN: 46 yo F with significant PMHx of diverticulosis admitted for intractable abdominal pain. Problem List - Problems (1) Diverticulitis Assessment/Plan: * GI consult appreciated * Continue IV Flagyl and Levaquin * IVF with NS * NPO for now. (2) Intractable abdominal pain Assessment/Plan: * Nephrolithiasis and hydronephrosis have been r/o with Kidney US. * CT shows possible colitis possibly a result of severe constipation and fecal impaction. * Patient started on Relistor 12mg SQ for severe constipation * D/C'd stimulant laxatives (3) Transaminitis Assessment/Plan: * Patient is s/p CCY this could be SE of abx or CBD obstruction. * Liver US ordered. * Repeat labs in AM Visit type - Emergency Visit Emergency Visit: Yes ED Registration Date: 11/19/16 Care time: The patient presented to the Emergency Department on the above date and was hospitalized for further evaluation of their emergent condition. - New Patient This patient is new to me today: No - Critical Care Critical Care patient: No - Discharge Referral Referred to [facility] Med [facility].C[facility] No
--- NOTE | 2016-11-20 17:41 | PN ---
GI Progress Note Subjective: Feeling better. Eating full liquid diet. Less pain. - Objective Vital Signs: Vital Signs Temperature 98.7 F 11/20/16 13:59 Pulse Rate 64 11/20/16 13:59 Respiratory Rate 20 11/20/16 13:59 Blood Pressure 115/56 11/20/16 13:59 O2 Sat by Pulse Oximetry (%) 97 11/20/16 10:00 Constitutional: Well Nourished Cardiovascular: Yes: Regular Rate and Rhythm Respiratory: Yes: CTA Bilaterally Gastrointestinal Inspection: Yes: WNL ...Auscultate: Yes: Normoactive Bowel Sounds ...Palpate: Yes: Soft, Tenderness (RLQ but less) Labs: CBC, BMP 11/20/16 08:20 11/20/16 08:20 Hepatic Panel Total Bilirubin 0.3 mg/dL (0.2-1.0) 11/20/16 08:20 AST 87 U/L (15-37) H D 11/20/16 08:20 ALT 129 U/L (12-78) H D 11/20/16 08:20 Alkaline Phosphatase 118 U/L (45-117) H D 11/20/16 08:20 Albumin 3.1 g/dl (3.4-5.0) L D 11/20/16 08:20 - ....Imaging Ultrasound: Report Reviewed (No dilated ducts.) Assessment/Plan Improving gradually Acutely increased LFTs in hospitalized patient who is s/p cholecystectomy is likely secondary to meds. D/C AB Rx as no LLQ tenderness and unlikely diverticulitis Advance diet Enemas and citrate of mg for constipation.
[2016-11-20] MEDS: MAGNESIUM CITRATE 300 ML BOTTLE PO SCH (22:15)
[2016-11-21 07:55] LABS: ALBUMIN 3.4 g/dl (3.4-5.0); ANION GAP 5 (8-16); CALCIUM 9.1 mg/dL (8.5-10.1); CO2 32 mmol/L (21-32); GLUCOSE,RANDOM 97 mg/dL (74-106)
[2016-11-21 07:57] LABS: ALK PHOS 116 U/L (45-117); BILIRUBIN,TOTAL 0.2 mg/dL (0.2-1.0); CREATININE 0.6 mg/dL (0.55-1.02); SGOT/AST 36 U/L (15-37); SGPT/ALT 95 U/L (12-78); TOT PROT 6.4 g/dl (6.4-8.2)
[2016-11-21] MEDS ORDERED: BISACODYL 10 MG SUPP.RECT RC ONE (07:57)
[2016-11-21 08:15] LABS: BASOPHIL 0.2 % (0-2.0); EOSINOPHIL 5.8 % (0-4.5); MCH 31.8 pg (25.7-33.7); MCHC 33.8 g/dl (32.0-36.0); MEAN CELL VOLUME 94.1 fl (80-96); MEAN PLT VOLUME 9.9 fl (7.5-11.1); NEUTROPHILS 55.9 % (42.8-82.8); PLATELET COUNT 269 K/MM3 (134-434); RDW 13.3 % (11.6-15.6); WHITE BLOOD COUNT 5.5 K/mm3 (4.0-10.0)
[2016-11-21] MEDS: POLYETHYLENE GLYCOL 3350 119 GM BTL PO SCH ×2 (08:47→15:03)
[2016-11-21] MEDS ORDERED: LACTULOSE 20 GM/30 ML UDC (FOR ORAL USE ONLY) PO ONE (08:48)
[2016-11-21] MEDS: MAGNESIUM CITRATE 300 ML BOTTLE PO SCH (09:33)
[2016-11-21] MEDS: PANTOPRAZOLE 40 MG TABLET (FP) PO SCH (11:11)
[2016-11-21] MEDS: Methylnaltrexone Bromide 12 MG/0.6 ML KIT SQ SCH (11:11)
[2016-11-21 14:03] VITALS: BP 128/74; PULSE 85; TEMP 98.3
--- NOTE | 2016-11-21 14:12 | PN ---
Progress Note (short form) - Note Progress Note: LFT's normalized Feels well Minimal RUQ pain Agree with discharge plan Will f/u as opt FF
--- NOTE | 2016-11-21 14:41 | DS ---
Physical Examination Vital Signs: Vital Signs Temperature 98.3 F 11/21/16 14:01 Pulse Rate 85 11/21/16 14:01 Respiratory Rate 20 11/21/16 14:01 Blood Pressure 128/74 11/21/16 14:01 O2 Sat by Pulse Oximetry (%) 97 11/21/16 02:00 Findings/Remarks: no abd pain , has no fever or chills. had multiple BMs today after getting laxatives . PE : NAD , AAOX3 MMM. CV: RRR, no mRG Lungs: CTAB ext: no edema Abd : soft, TTP in RLQ, minimal. Nl BS Labs: CBC, BMP 11/21/16 06:00 11/21/16 06:00 Discharge Summary Reason For Visit: DIVERTICULITIS INTRACTABLE ABDOMINAL PAIN Current Active Problems Colitis (Acute) Intractable abdominal pain (Acute) Transaminitis (Acute) Hospital Course: 46 y/o lady with h/o CCY, diverticulosis , appendectomy and chronic constipation who presented with abdominal pain . AT presentation , she had NL WBC, LFTS , and nL vitals. CT scan of the abdomen showed fecal impaction and thickening of the sigmoid colon. her abd pain was thought to be due to her fecal impaction. Initially her colitis was thought to be infectious, vs ischemic but lactate was NL and her wbc remained NL. She was seen by GI and her Abx which were started on admission were d/c 'd. of note she had pain in RLQ and RUQ , but she has h/o CCY and Appendectomy. and no signs fo UTI. Digital dis-impaction was tried but was unsuccessful so other laxatives were tried. Today she had several BMs with significant relief of Sx. Towards the end of her hospital stay, she had acute increase of her LFTS , but US failed to show any CBD distentionand her lab increase was thought to be due to Abx . today levels have normalized ( still slight increase in ALT ) She is to follow with Dr. Moreno from GI for further f//u dispo: Home condition :improved F/U GI. PCP Condition: Improved - Instructions Diet, Activity, Other Instructions: please follow with your PCP in 1 week - follow with Dr. Claudio from GI - please take miralax daily , you can hold for diarrhea - take senna and colace twice daily . - you need to avoid severe constipation to avoid complications like obstruction - notify your doctor if you don't have a BM in 5-6 days - your laxatives are over the counter Referrals: Ravinder Claudio MD [Staff Physician] - Madelyn Frost NP [Primary Care Provider] - 1 Week Disposition: HOME - Home Medications Comprehensive Discharge Medication List: Ambulatory Orders Polyethylene Glycol 3350 [Miralax 119 gm Btl -] 17 gm PO DAILY #0 bottle Sennosides/Docusate Sodium [Pericolace -] 1 tablet PO BID #60 tablet 11/21/16 This patient is new to me today: No Emergency Visit: Yes ED Registration Date: 11/19/16 Care time: The patient presented to the Emergency Department on the above date and was hospitalized for further evaluation of their emergent condition. Critical Care patient: No - Discharge Referral Referred to [facility] Med P.C.: No
== END 2016-11-21 17:35 | disposition home or self-care (01) ==
LOC: JER 15:37 → JERBED 11-19 01:13 → UNDOADMOB 11-19 01:18 → J7W 11-19 03:23
PROVIDERS: ADMIT Internal Medicine; ATTEND Internal Medicine
PROC: 3E033NZ Introduction of Analgesics, Hypnotics, Sedatives into Peripheral Vein, Percutaneous Approach (ICD-10-PCS; principal; 2016-11-19)
PROC: 3E0333Z Introduction of Anti-inflammatory into Peripheral Vein, Percutaneous Approach (ICD-10-PCS; 2016-11-19)
PROC: 3E033GC Introduction of Other Therapeutic Substance into Peripheral Vein, Percutaneous Approach (ICD-10-PCS; 2016-11-19)
PROC: 3E0337Z Introduction of Electrolytic and Water Balance Substance into Peripheral Vein, Percutaneous Approach (ICD-10-PCS; 2016-11-19)
PROC: 3E03329 Introduction of Other Anti-infective into Peripheral Vein, Percutaneous Approach (ICD-10-PCS; 2016-11-19)
PROC: 3E033NZ Introduction of Analgesics, Hypnotics, Sedatives into Peripheral Vein, Percutaneous Approach (ICD-10-PCS; 2016-11-19)
PROC: 3E013GC Introduction of Other Therapeutic Substance into Subcutaneous Tissue, Percutaneous Approach (ICD-10-PCS; 2016-11-19)
DX: K57.32 Diverticulitis of large intestine without perforation or abscess without bleeding (principal); R10.9 Unspecified abdominal pain; R74.0 Nonspecific elevation of levels of transaminase and lactic acid dehydrogenase [LDH]
CPT/HCPCS: 36415; 71010-TC; 74177-TC; 76705-TC; 76775-TC; 80048; 80053; 81003; 81015; 83605; 83690; 84703; 85025; 87086; 93005; 93010; 99283-25; G0378